=== PATIENT | male | born 1975 | race Caucasian/White ===

== ENCOUNTER 2020-10-26 10:30 | Outpatient (CLI) | payer BC, SELFPAY ==
--- NOTE | ~2020-10-26 | PE_ITS ---
EXAMINATION: PET skull to mid thigh DATE: 10/26/2020 12:35 INDICATION: Abnormal CT. TECHNIQUE: Blood glucose level was 105 mg/dL. 10.699 mCi of 18-fluorodeoxyglucose (18-FDG) was admini stered i.v. Low dose computed tomography (CT) images were acquired from the base of the brain to the proximal thighs for attenuation correction and anatomic localization. Automated exposure control was employed. Dose-length product (DLP) was 989 mGy-cm. Positron emission tomography (PET) images were ac quired in the same distribution. COMPARISON: None FINDINGS: Head/neck: There is increased activity in the oropharynx, oral cavity, left submandibular gland, and glottis without CT correlate, likely physiologic. There are no pathologically enlarged lymph nodes. Chest: There is mild emphysema. There is a 15 mm nodule in right lower lobe with maximum SUV of 2.6. There is a 17 x 10 mm right hilar node with maximum SUV of 6.9. There is a 12 x 20 mm right paratrach eal lymph node with mildly increased activity. No pleural effusion. The heart size is normal. No nino cardial effusion. There are coronary artery calcifications. Abdomen/pelvis/proximal thighs: There is diffuse hepatic steatosis. The gallbladder, spleen, pancreas , and right adrenal gland are normal. There is a 3.0 cm left adrenal mass with attenuation of 15 HU w ithout increased activity, likely an adenoma. The kidneys are normal. There are no dilated loops of b owel. There are bilateral inguinal hernias containing fat. There are no pathologically enlarged lymph nodes. There is no free intraperitoneal fluid. There is severe lower lumbar spondylosis. IMPRESSION: 1. 15 mm right lower lobe pulmonary nodule with increased activity, consistent with primary bronchoge lucita carcinoma. CT-guided core needle biopsy is recommended. 2. Mild right hilar and mediastinal lymphadenopathy with increased activity, consistent with metastat ic disease. Reviewed, dictated and finalized at location [facility] WORK[facility] IMPRESSION: 1. 15 mm right lower lobe pulmonary nodule with increased activity, consistent with primary bronchogenic carcinoma. CT-guided core needle biopsy is recommende d. 2. Mild right hilar and mediastinal lymphadenopathy with increased activity, co nsistent with metastatic disease.
[2020-10-26 11:00] LABS: Glucose Point of Care 105 (65-105)
== END 2020-10-26 10:31 | disposition home or self-care (01) ==
PROVIDERS: PCP Family Medicine; Visit Provider Family Medicine
DX: R93.89 Abnormal findings on diagnostic imaging of other specified body structures (principal); R59.1 Generalized enlarged lymph nodes
CPT/HCPCS: 78815; 82948; A9552

== ENCOUNTER 2022-12-15 00:08 | Day surgery (SDC) | payer BC, SELFPAY ==
[2022-11-30 10:43] VITALS: BMI 34.7
[2022-12-15 08:00] VITALS: BP 146/82; PULSE 97; RESP 18; TEMP 36.1; O2SAT 99; BMI 35.9
--- NOTE | 2022-12-15 08:11 | P.PNAN_ITS ---
Anes - Initial Pre Proc Eval Procedure: Operation Date: 12/15/22 08:45 Proposed Procedures p Esophagogastroduodenoscopy & Screening Colonoscopy - Raffy Nunez MD Date/Time: 12/15/22 08:11 Surgeon: Raffy Smith MD Pre Op Diagnosis: GERD, neoplasm screening Patient Data Age: 47 Gender: M Height: 1.88 m Weight: 122.5 kg Allergies Allergy/AdvReac Type Severity Reaction Status Date / Time No Known Allergies Allergy Mild Verified 12/15/22 08:02 Home Medications Medication Instructions Recorded Confirmed Type amlodipine 5 mg tablet 5 mg PO DAILY 11/30/22 12/15/22 History bupropion HCl 150 mg 24 hr tablet, 150 mg PO DAILY 11/30/22 12/15/22 History extended release lisinopril 20 20 tablet PO DAILY 11/30/22 12/15/22 History mg-hydrochlorothiazide 25 mg tablet omeprazole 40 mg capsule,delayed 40 mg PO DAILY 11/30/22 12/15/22 History release Patient hx anesthesia problems: none Family hx anesthesia problems: none Results Review: All pre-operative results and documents have been reviewed as part of the pre- operative evaluation. PMFSH Social History Social History Years smoked: 30 Smoking status: Current every day smoker Tobacco type: cigarettes Alcohol intake: current Drinks per week: 4 Substance use type: does not use Living arrangements: with family Spiritual care concerns: No Anes - Eval Final PreProcedure Day of Procedure 12/15/22 08:11 Patient weight: obese Heart: regular rate and rhythm Lungs: clear to auscultation Neurological: alert and oriented Last oral intake: 2 hours (had black coffee at 0730) ASA classification: III Emergent: no Anesthetic plan: proceed Anesthesia type and monitoring: general GIVS and standard monitoring Results Review: All pre-operative results and documents have been reviewed as part of the pre- operative evaluation. Informed Consent: The patient's anesthetic plan and its attendant risks and benefits were discussed with the patient/family/POA. Questions were solicited and answers provided to the satisfaction of the patient/family/POA.
[2022-12-15] MEDS: LACTATED RINGERS 1,000 ML 150 ML IV CONT (08:12)
--- NOTE | 2022-12-15 08:33 | PM.HPGS ---
History of Present Illness History of Present Illness Consent: Risks, benefits, and alternatives have been discussed and questions answered. Patient agrees to proceed with procedure. Chief complaint: GERD, neoplasm screening Narrative: Lyndon Shannon is a 47 year old male with gerd on omeprazole, had egd but years ago, never had colonoscopy Review of Systems Constitutional: Constitutional: Denies headache(s) and Denies weakness Eyes: Eyes: Denies blurry vision ENT: Reports Normal hearing present, Denies headache(s) and Denies neck pain Cardiovascular: Cardiovascular: Denies chest pain and Denies dyspnea Respiratory: Respiratory: Denies dyspnea Gastrointestinal: Gastrointestinal: Reports no additional gastrointestinal complaints Genitourinary: Genitourinary: Denies dysuria Musculoskeletal: Musculoskeletal: Denies neck pain Integumentary/Breasts: Skin/Breast: Denies dry skin Neurologic: Reports Normal hearing present, Denies headache(s) and Denies weakness Psychiatric: Psychiatric: Denies anxiety Endocrine: Endocrine: Denies change in body appearance Hematologic/Lymphatic: Hematologic/Lymphatic: Denies easy bleeding Allergic/Immunologic: Allergic/Immunologic: Denies urticaria PMFSH Past Medical History Medical History (Updated 12/15/22 @ 08:34 by Raffy Smith MD) Colon cancer screening GERD (gastroesophageal reflux disease) Social History Social History Years smoked: 30 Smoking status: Current every day smoker Tobacco type: cigarettes Alcohol intake: current Drinks per week: 4 Substance use type: does not use Living arrangements: with family Spiritual care concerns: No Meds Home Medications and Allergies Home Medications Medication Instructions Recorded Confirmed Type amlodipine 5 mg tablet 5 mg PO DAILY 11/30/22 12/15/22 History bupropion HCl 150 mg 24 hr tablet, 150 mg PO DAILY 11/30/22 12/15/22 History extended release lisinopril 20 20 tablet PO DAILY 11/30/22 12/15/22 History mg-hydrochlorothiazide 25 mg tablet omeprazole 40 mg capsule,delayed 40 mg PO DAILY 11/30/22 12/15/22 History release Allergies Allergy/AdvReac Type Severity Reaction Status Date / Time No Known Allergies Allergy Mild Verified 12/15/22 08:02 Vital Signs Vital Signs - 24 hr 12/15/22 08:00 Temperature 97.0 F L Pulse Rate 97 Respiratory Rate 18 Blood Pressure 146/82 H Pulse Oximetry 99 Oxygen Delivery Room Air Exam Const: General: comfortable and no acute distress HENMT: Face/Nose/Sinus: Normal nares present Eyes: General: appearance normal, both eyes and all related structures Neck: Neck: no JVD Resp: Auscultation: clear to auscultation bilaterally Cardio: Rate: regular rate Rhythm: regular rhythm GI: Inspection: non-distended GI Palp: Yes Soft to palpation Skin: General skin exam: normal color Neuro: General: gait normal Speech: normal speech Extrem: General: normal to inspection Psych: Mental Status: mental status grossly normal Assessment and Plan Assessment and plan (1) GERD (gastroesophageal reflux disease): Code(s): K21.9 - Gastro-esophageal reflux disease without esophagitis Status: Acute Assessment and Plan: egd with bx (2) Colon cancer screening: Code(s): Z12.11 - Encounter for screening for malignant neoplasm of colon Status: Acute Assessment and Plan: colonoscopy
[2022-12-15 09:48] VITALS: BP 97/62; PULSE 80; RESP 24; O2SAT 97
[2022-12-15 09:58] VITALS: BP 113/83; PULSE 83; RESP 20; O2SAT 98
[2022-12-15 10:08] VITALS: BP 115/77; PULSE 82; RESP 22; O2SAT 97
== END 2022-12-15 10:26 | disposition home or self-care (01) ==
PROVIDERS: PCP Family Medicine; Visit Provider Internal Medicine Gastroenterology
PROC: 0DJ08ZZ Inspection of Upper Intestinal Tract, Via Natural or Artificial Opening Endoscopic (ICD-10-PCS; CPT 43235; principal; 2022-12-15 08:45)
DX: Z12.11 Encounter for screening for malignant neoplasm of colon (principal); D12.5 Benign neoplasm of sigmoid colon; K21.00 Gastro-esophageal reflux disease with esophagitis, without bleeding; K44.9 Diaphragmatic hernia without obstruction or gangrene; F17.210 Nicotine dependence, cigarettes, uncomplicated; E66.9 Obesity, unspecified; Z68.35 Body mass index [BMI] 35.0-35.9, adult
CPT/HCPCS: 45385; 43239; 88305; J2704; J7120